=== PATIENT | female | born 1970 | race Caucasian/White ===

== ENCOUNTER 2017-09-30 19:58 | Emergency (ER) | payer MEDICAID | END 2017-09-30 23:01 | disposition home or self-care (01) | LOC: D.ER 19:58 | DX: M25.561 Pain in right knee (principal); K21.9 Gastro-esophageal reflux disease without esophagitis; J44.9 Chronic obstructive pulmonary disease, unspecified; F17.200 Nicotine dependence, unspecified, uncomplicated ==

== ENCOUNTER 2018-11-01 17:04 | Inpatient (IN) | payer MEDICAID ==
[~2018-11-01] VITALS: Ht 165.1 cm; Wt 90.7 kg
[2018-11-01] MEDS ORDERED: HYDROCODON-ACE1 EA10 PO (17:14)
[2018-11-01] MEDS ORDERED: BENADRYL25 MG PO (17:14)
[2018-11-01] MEDS ORDERED: OMEPRAZOLE40 MG PO (17:14)
[2018-11-01 17:19] VITALS: BP 152/93
[2018-11-01 18:04] VITALS: BP 128/77
[2018-11-01 18:20] LABS: BASOPHILS 0.4 % (0-2); EOSINOPHILS 4.7 % (0-7); HEMATOCRIT 43.5 % (36.0-48.0); HEMOGLOBIN 14.9 g/dL (12-16); IMMATURE GRANULOCYTES 0.3 % (0-5); LYMPHOCYTES 17.5 % (15-50); MCH 30.4 pg (26.0-34.0); MCHC 34.3 g/dL (31.0-37.0); MCV 88.8 fL (80.0-100.0); MEAN PLATELET VOLUME 9.7 fL (7.4-10.4); MONOCYTES 4.3 % (2-11); NEUTROPHILS 72.8 % (40-80); PLATELET COUNT 366 10x3/uL (130-400); RDW 14.3 % (11.5-14.5); WBC 19.5 10x3/uL (4.8-10.8)
[2018-11-01 18:31] LABS: INR 1.02 (0.85-1.17); PROTIME 12.9 SECONDS (11.6-15.0)
[2018-11-01 18:32] LABS: APTT 32.3 SECONDS (22.8-39.4)
[2018-11-01 18:48] LABS: ALBUMIN 3.9 g/dL (3.4-5.0); ALKALINE PHOSPHATASE 88 U/L (46-116); ALT (SGPT) 19 U/L (10-68); BILIRUBIN - TOTAL 0.17 mg/dL (0.2-1.3); CALC OSMOLALITY 277 mosm/kg (275-300); CARBON DIOXIDE 22.9 mmol/L (21.0-32.0); CHLORIDE - SERUM 104 mmol/L (98-107); CREATININE - SERUM 0.7 mg/dL (0.6-1.3); GLUCOSE 116 mg/dL (74-106); POTASSIUM - SERUM 3.6 mmol/L (3.5-5.1); PROTEIN - SERUM 8.4 g/dL (6.4-8.2); SODIUM 140 mmol/L (136-145); UREA NITROGEN 7 mg/dL (7-18); eGFR NON AFRICAN AMERICAN > 90 mL/min (90-120)
[2018-11-01 18:58] LABS: CKMB 2.6 U/L (0.0-3.6); CREATINE KINASE 142 UL (21-215); PRO BNP 24 pg/mL (0-125)
[2018-11-01 18:59] LABS: TROPONIN-I < 0.017 ng/mL (0.000-0.060)
[2018-11-01 19:04] VITALS: BP 156/92
[2018-11-01 19:42] LABS: APPEARANCE CLEAR (CLEAR); BILIRUBIN NEGATIVE (NEGATIVE); COLOR STRAW (YELLOW); GLUCOSE NEGATIVE (NEGATIVE); KETONE NEGATIVE (NEGATIVE); NITRITE NEGATIVE (NEGATIVE); PROTEIN NEGATIVE (NEGATIVE); UROBILINOGEN NORMAL (NORMAL)
[2018-11-01 20:00] VITALS: BP 129/83
[2018-11-01 21:00] VITALS: BP 114/84
--- NOTE | 2018-11-01 23:10 | NUR ---
RECEIVED TO FLOOR VIA WHEELCHAIR, ACCOMPANIED BY STAFF AND DAUGHTER. AMBULATED FROM CHAIR TO BED W/O DIFFICULTY. A&O X 4. PT BEGAN TO FAN SELF AND BREATHE HEAVILY. REQUESTS BREATHING TX, RT NOTIFIED. SPO2 93% ON 3L, EXPIRATORY WHEEZES HEARD BILATERALLY. REPORTS CHEST/BACK PAIN FROM COUGHING, REPORTS NO SPUTUM EXPECTORATES. STATED, "I NEED IT TO COME UP SO I CAN BREATHE." INFORMED PT TO INCREASE ORAL FLUID INTAKE TO THIN SECRETIONS TO MAKE IT EASIER. PT STATES SHE CAN'T EAT OR DRINK MUCH DUE TO SHORTNESS OF BREATH.
[2018-11-02] VITALS (7 sets, daily range): BP systolic 107–152; BP diastolic 69–89; BMI 33.3; BMI 33.2
--- NOTE | 2018-11-02 04:02 | NUR ---
I CONCUR WITH WELLNESS PROGRAM MANAGER ASSESSMENT.
[2018-11-02 11:06] LABS: BASOPHILS 0.1 % (0-2); EOSINOPHILS 0 % (0-7); HEMATOCRIT 43.6 % (36.0-48.0); HEMOGLOBIN 14.6 g/dL (12-16); IMMATURE GRANULOCYTES 0.3 % (0-5); LYMPHOCYTES 19.4 % (15-50); MCH 29.9 pg (26.0-34.0); MCHC 33.5 g/dL (31.0-37.0); MCV 89.2 fL (80.0-100.0); MONOCYTES 6.6 % (2-11); NEUTROPHILS 73.6 % (40-80); PLATELET COUNT 330 10x3/uL (130-400); RBC 4.89 10x6/uL (4.00-5.40); RDW 14.5 % (11.5-14.5)
[2018-11-02 11:08] LABS: WBC 12.9 10x3/uL (4.8-10.8)
[2018-11-02 11:28] LABS: ALBUMIN 3.9 g/dL (3.4-5.0); ALKALINE PHOSPHATASE 84 U/L (46-116); ALT (SGPT) 18 U/L (10-68); BILIRUBIN - TOTAL 0.26 mg/dL (0.2-1.3); CALC OSMOLALITY 274 mosm/kg (275-300); CALCIUM 9.4 mg/dL (8.5-10.1); CARBON DIOXIDE 26.2 mmol/L (21.0-32.0); CHLORIDE - SERUM 100 mmol/L (98-107); CREATININE - SERUM 0.8 mg/dL (0.6-1.3); GLUCOSE 127 mg/dL (74-106); POTASSIUM - SERUM 3.9 mmol/L (3.5-5.1); PRO BNP 95 pg/mL (0-125); PROTEIN - SERUM 8.3 g/dL (6.4-8.2); SODIUM 137 mmol/L (136-145); UREA NITROGEN 9 mg/dL (7-18); eGFR NON AFRICAN AMERICAN 81 mL/min (90-120)
--- NOTE | 2018-11-02 11:56 | NUR ---
I have reviewed this patient and I concur with the Shift Assessment completed by the Licensed Practical Nurse today this shift.
[2018-11-03] VITALS: BP 126/74
--- NOTE | 2018-11-03 05:30 | NUR ---
I have reviewed this patient and I concur with the Shift Assessment completed by the Licensed Practical Nurse today this shift.
[2018-11-03 05:59] LABS: BASOPHILS 0.1 % (0-2); EOSINOPHILS 0 % (0-7); HEMATOCRIT 39.7 % (36.0-48.0); IMMATURE GRANULOCYTES 0.4 % (0-5); LYMPHOCYTES 9.5 % (15-50); MCH 29.5 pg (26.0-34.0); MCHC 32.7 g/dL (31.0-37.0); MCV 90.2 fL (80.0-100.0); MEAN PLATELET VOLUME 9.8 fL (7.4-10.4); MONOCYTES 2.8 % (2-11); NEUTROPHILS 87.2 % (40-80); PLATELET COUNT 295 10x3/uL (130-400); RDW 14.6 % (11.5-14.5)
[2018-11-03 06:28] LABS: ALBUMIN 3.3 g/dL (3.4-5.0); ALKALINE PHOSPHATASE 66 U/L (46-116); BILIRUBIN - TOTAL 0.19 mg/dL (0.2-1.3); CALC OSMOLALITY 283 mosm/kg (275-300); CALCIUM 8.6 mg/dL (8.5-10.1); CARBON DIOXIDE 27.3 mmol/L (21.0-32.0); CHLORIDE - SERUM 107 mmol/L (98-107); CREATININE - SERUM 0.7 mg/dL (0.6-1.3); GLUCOSE 138 mg/dL (74-106); POTASSIUM - SERUM 4.4 mmol/L (3.5-5.1); SODIUM 142 mmol/L (136-145); UREA NITROGEN 9 mg/dL (7-18); eGFR NON AFRICAN AMERICAN > 90 mL/min (90-120)
[2018-11-03 06:29] LABS: ALT (SGPT) 28 U/L (10-68)
--- NOTE | 2018-11-03 08:04 | NUR ---
EYES CLOSED, EASILY AROUNSED BY VOICE, ORIENTED X4 EVEN UNLABORED BREATHING, ON 3LPM VIA NC WITH HUMIDIFER, IV TO RIGHT FOREARM, PATENT INFUSING NS AT 75ML/HR WITH ZOSYN, DENIES ANY CURRENT NEEDS OR DISCOMFORTS, BED LOWERED AND LOCKED, CALL LIGHT WITHIN REACH. CPOC
[2018-11-03 08:59] VITALS: BP 118/63
[2018-11-03 10:45] VITALS: Ht 165.1 cm; Wt 90.7 kg
[2018-11-03 14:48] VITALS: BP 127/70
--- NOTE | 2018-11-03 15:11 | NUR ---
I have reviewed this patient and I concur with the Shift Assessment completed by the Licensed Practical Nurse today this shift.
[2018-11-03 17:12] VITALS: BP 130/74
[2018-11-03 19:31] VITALS: BP 113/71
--- NOTE | 2018-11-03 19:35 | NUR ---
SITTING UP IN BED. ALERT AND ORIENTED X4. RESP EVEN AND NONLABORED. SOB WITH MIN EXERTION. O2 @ 3L/NC. NONPROD COUGH NOTED. BBS CTA BUT DIMINISHED IN BLL. NO EDEMA NOTED. ABD DISTENDED. BS HYPOACTIVE X4 QUADS. REPORTS LAST BM ON MON OR MON. AMBULATORY. NS @ 75 ML/HR INFUSING IN RT FOREARM WITHOUT DIFF. SR ELEVATED X2. CL IN REACH.
--- NOTE | 2018-11-03 22:00 | NUR ---
REQUESTS BENADRYL FOR INSOMNIA. MEDICATED ORDERED. CL IN REACH.
--- NOTE | 2018-11-04 00:19 | NUR ---
LYING IN BED WITH EYES CLOSED. RESP EVEN AND NONLABORED. NO DISTRESS. CL IN REACH.
[2018-11-04 03:00] VITALS: BP 119/64
--- NOTE | 2018-11-04 05:30 | NUR ---
MEDICATED WITH NORCO FOR C/O PAIN IN CHEST AND BACK. CL IN REACH.
[2018-11-04 07:07] LABS: BASOPHILS 0 % (0-2); EOSINOPHILS 0 % (0-7); HEMATOCRIT 39.9 % (36.0-48.0); HEMOGLOBIN 12.9 g/dL (12-16); IMMATURE GRANULOCYTES 0.3 % (0-5); LYMPHOCYTES 11.7 % (15-50); MCH 29.7 pg (26.0-34.0); MCHC 32.3 g/dL (31.0-37.0); MCV 91.9 fL (80.0-100.0); MEAN PLATELET VOLUME 9.9 fL (7.4-10.4); MONOCYTES 5.3 % (2-11); NEUTROPHILS 82.7 % (40-80); PLATELET COUNT 299 10x3/uL (130-400); RBC 4.34 10x6/uL (4.00-5.40); RDW 14.8 % (11.5-14.5); WBC 17.8 10x3/uL (4.8-10.8)
[2018-11-04 07:31] LABS: ALBUMIN 3.2 g/dL (3.4-5.0); ALKALINE PHOSPHATASE 64 U/L (46-116); ALT (SGPT) 34 U/L (10-68); BILIRUBIN - TOTAL 0.23 mg/dL (0.2-1.3); CALC OSMOLALITY 278 mosm/kg (275-300); CALCIUM 8.5 mg/dL (8.5-10.1); CARBON DIOXIDE 28.2 mmol/L (21.0-32.0); CHLORIDE - SERUM 105 mmol/L (98-107); CREATININE - SERUM 0.8 mg/dL (0.6-1.3); GLUCOSE 121 mg/dL (74-106); POTASSIUM - SERUM 4.2 mmol/L (3.5-5.1); SODIUM 140 mmol/L (136-145); UREA NITROGEN 9 mg/dL (7-18); eGFR NON AFRICAN AMERICAN 81 mL/min (90-120)
[2018-11-04 08:45] VITALS: BP 134/70
--- NOTE | 2018-11-04 10:53 | NUR ---
AAOX4. 3LPM VIA NC, IV TO RIGHT FOREARM, INFUSING NS AT 75ML/HR, AMBULATORY, DENIES ANY CURRENT NEEDS OR DISCOMFORTS, BED LOWERED AND LOCKED, CALL LIGHT WITHIN REACH. CPOC
[2018-11-04 12:00] VITALS: BP 104/62
--- NOTE | 2018-11-04 14:51 | NUR ---
IV INFILITRATED TO RIGHT FOREARM, CATHETER REMOVED, WITH CATHETER TIP INTACT, ICE APPLIED. DENIES ANY OTHER NEEDS OR DISCOMFORTS, BED LOWERED AND LOCKED, CALL LIGHT WITHIN REACH. CPOC
[2018-11-04 16:30] VITALS: BP 129/76
--- NOTE | 2018-11-04 19:30 | NUR ---
SITTING UP IN BED. VISITOR AT BEDSIDE. ALERT AND ORIENTED X4. TALKATIVE WITH STAFF. RESP IRREG. NONLABORED. SOB WITH EXERTION. O2 @ 3L/NC. PROD COUGH WITH CLEAR SPUTUM REPORTED. ABD DISTENDED, FIRM. BS ACTIVE X4 QUADS. REPORTS PAIN IN CHEST AND BACK 2 ON PAIN SCALE. BRUISES NOTED TO BUE. AMBULATORY. NS @ 75 ML/HR INFUSING IN RT WRIST WITHOUT DIFF. NO DISTRESS. SR ELEVATED X2. CL IN REACH.
[2018-11-04 20:31] VITALS: BP 133/79
--- NOTE | 2018-11-04 21:29 | NUR ---
REQUESTS BENADRYL FOR INSOMNIA. MEDICATED ORDERED. CL IN REACH.
--- NOTE | 2018-11-05 00:40 | NUR ---
MEDICATED WITH NORCO FOR C/O PAIN IN CHEST AND BACK. CL IN REACH.
[2018-11-05 06:21] LABS: BASOPHILS 0.1 % (0-2); EOSINOPHILS 0.1 % (0-7); HEMATOCRIT 38.8 % (36.0-48.0); HEMOGLOBIN 12.6 g/dL (12-16); IMMATURE GRANULOCYTES 0.4 % (0-5); LYMPHOCYTES 17.4 % (15-50); MCH 29.4 pg (26.0-34.0); MCHC 32.5 g/dL (31.0-37.0); MCV 90.4 fL (80.0-100.0); MEAN PLATELET VOLUME 9.9 fL (7.4-10.4); MONOCYTES 5.4 % (2-11); NEUTROPHILS 76.6 % (40-80); PLATELET COUNT 283 10x3/uL (130-400); RBC 4.29 10x6/uL (4.00-5.40); RDW 14.2 % (11.5-14.5)
[2018-11-05 06:24] LABS: WBC 11.3 10x3/uL (4.8-10.8)
[2018-11-05 06:43] LABS: ALBUMIN 3.1 g/dL (3.4-5.0); ALKALINE PHOSPHATASE 66 U/L (46-116); ALT (SGPT) 39 U/L (10-68); BILIRUBIN - TOTAL 0.16 mg/dL (0.2-1.3); CALC OSMOLALITY 282 mosm/kg (275-300); CALCIUM 8.3 mg/dL (8.5-10.1); CARBON DIOXIDE 31.3 mmol/L (21.0-32.0); CHLORIDE - SERUM 106 mmol/L (98-107); CREATININE - SERUM 0.7 mg/dL (0.6-1.3); GLUCOSE 130 mg/dL (74-106); POTASSIUM - SERUM 4.3 mmol/L (3.5-5.1); PROTEIN - SERUM 6.2 g/dL (6.4-8.2); SODIUM 142 mmol/L (136-145); UREA NITROGEN 8 mg/dL (7-18); eGFR NON AFRICAN AMERICAN > 90 mL/min (90-120)
--- NOTE | 2018-11-05 07:20 | NUR ---
PT RESTING IN BED, EYES CLOSED. RESPIRATIONS EVEN AND UNLABORED. PT ALERT AND ORIENTED. UP AD JONY. BRUISING BILATERAL UPPER EXTREMETIES. ABDOMEN DISTENDED, BOWEL SOUNDS +, HAD BM LAST NIGHT. ON ELECTROLYTE PROTOCOL. ON 3L O2, NC. NO C/O PAIN. NO S/S OF DISTRESS NOTED. IV TO RIGHT WRIST, NS INFUSING @ 75. SITE PATENT WITHOUT REDNESS OR SWELLING. PT DENIES ANYTHING FURTHER AT THIS TIME. CALL LIGHT IN REACH. WILL CONTINUE TO MONITOR.
[2018-11-05 09:13] VITALS: BP 140/80
--- NOTE | 2018-11-05 09:23 | NUR ---
I have reviewed this patient and I concur with the Shift Assessment completed by the Licensed Practical Nurse today this shift.
[2018-11-05 13:56] VITALS: BP 122/82
[2018-11-05 17:04] VITALS: BP 140/56
--- NOTE | 2018-11-05 18:59 | NUR ---
PT SITTING UP IN BED. NO C/O PAIN. NO S/S OF ACUTE DISTRESS NOTED. CALL LIGHT IN REACH. DENIES ANYTHING FURTHER.
--- NOTE | 2018-11-05 19:42 | NUR ---
REC'D IN BED AWAKE AND ALERT ON PHONE. RESP EVEN AND UNLABORED WITH NO DISTRESS NOTED. CAN VOICE NEEDS AND WANTS WITH NO C/O NOTED OR VOICED. ASSESSMENT COMPLETED. C/L IN REACH AT BEDSIDE.
[2018-11-05 20:00] VITALS: BP 138/78
[2018-11-06] VITALS: BP 121/77
[2018-11-06 04:00] VITALS: BP 139/95
--- NOTE | 2018-11-06 04:12 | NUR ---
I have reviewed this patient and I concur with the Shift Assessment completed by the Licensed Practical Nurse today this shift.
--- NOTE | 2018-11-06 05:31 | NUR ---
C/O BACK PAIN RATING 4/10 ON PAIN SCALE WAS MEDICATED WITH NORCO.
[2018-11-06 06:32] LABS: HEMATOCRIT 39.3 % (36.0-48.0); LYMPHOCYTES 18.2 % (15-50); MCHC 33.1 g/dL (31.0-37.0); MCV 90.8 fL (80.0-100.0); MEAN PLATELET VOLUME 9.7 fL (7.4-10.4); NEUTROPHILS 76.7 % (40-80); PLATELET COUNT 292 10x3/uL (130-400); RBC 4.33 10x6/uL (4.00-5.40); RDW 13.9 % (11.5-14.5); WBC 12.9 10x3/uL (4.8-10.8)
[2018-11-06 07:02] LABS: ALKALINE PHOSPHATASE 66 U/L (46-116); ALT (SGPT) 37 U/L (10-68); BILIRUBIN - TOTAL 0.13 mg/dL (0.2-1.3); CALC OSMOLALITY 283 mosm/kg (275-300); CALCIUM 8.4 mg/dL (8.5-10.1); CARBON DIOXIDE 28.9 mmol/L (21.0-32.0); CHLORIDE - SERUM 106 mmol/L (98-107); CREATININE - SERUM 0.6 mg/dL (0.6-1.3); GLUCOSE 124 mg/dL (74-106); PROTEIN - SERUM 6.3 g/dL (6.4-8.2); SODIUM 143 mmol/L (136-145); UREA NITROGEN 8 mg/dL (7-18); VANCOMYCIN - TROUGH 20.4 ug/mL (10.0-20.0); eGFR NON AFRICAN AMERICAN > 90 mL/min (90-120)
[2018-11-06 07:05] LABS: POTASSIUM - SERUM 3.6 mmol/L (3.5-5.1)
--- NOTE | 2018-11-06 07:25 | NUR ---
PT RESTING IN BED, ALERT AND ORIENTED. NO C/O PAIN. NO S/S OF ACUTE DISTRESS NOTED. PT UP AD JONY. IV TO RIGHT WRIST, NS INFUSING @ 75ML/HR. SITE PATENT WITHOUT REDNESS OR SWELLING. PT ON ELECTROLYTE PROTOCOL. LUNG SOUNDS CLEAR, EXCEPT LLL DIMINISHED. PT DENIES ANYTHING FURTHER AT THIS TIME. CALL LIGHT IN REACH. WILL CONTINUE TO MONITOR.
[2018-11-06 08:51] VITALS: BP 141/89
[2018-11-06 13:21] VITALS: BP 123/71
--- NOTE | 2018-11-06 14:23 | NUR ---
NUTRITION F/U CHART REVIEWED. PT TOLERATING AHA DIET WITH GOOD INTAKE RECENT MEALS. WILL CONTINUE TO PROVIDE DIET, MONITOR PO INTAKE. RD FOLLOWING
--- NOTE | 2018-11-06 15:58 | NUR ---
I have reviewed this patient and I concur with the Shift Assessment completed by the Licensed Practical Nurse today this shift.
[2018-11-06 17:52] VITALS: BP 139/81
--- NOTE | 2018-11-06 18:40 | NUR ---
PT IV SITE LEAKING, DISCONTINUED IV TO RIGHT WRIST CATHETER TIP INTACT. RESITED TO RIGHT FOREARM, X1 TRY 22 GAUGE. IV FLUIDS RESUMED, VANC INFUSING. CALL LIGHT IN REACH. NO C/O PAIN. NO S/S OF ACUTE DISTRESS NOTED. PT DENIES ANYTHING FURTHER.
[2018-11-06 20:00] VITALS: BP 143/668
[2018-11-07 04:00] VITALS: BP 133/81
--- NOTE | 2018-11-07 04:49 | NUR ---
REC'D. CHG.SHIFT IN BED TALKING ON PHONE. DENIES ANY DISCOMFORT OR COMPLAINTS AT PRESENT TIME EXCITED STATES MAY GO HOME IN AM. WILL CONTINUE TO MONITORE FOR ANY CHGES. AND FOLLOW CURRENT PLAN OF CARE.
[2018-11-07 07:00] LABS: BASOPHILS 0.1 % (0-2); EOSINOPHILS 0.1 % (0-7); HEMATOCRIT 39.6 % (36.0-48.0); HEMOGLOBIN 12.9 g/dL (12-16); IMMATURE GRANULOCYTES 0.8 % (0-5); LYMPHOCYTES 17.5 % (15-50); MCH 29.6 pg (26.0-34.0); MCHC 32.6 g/dL (31.0-37.0); MCV 90.8 fL (80.0-100.0); MONOCYTES 6.6 % (2-11); NEUTROPHILS 74.9 % (40-80); PLATELET COUNT 283 10x3/uL (130-400); RBC 4.36 10x6/uL (4.00-5.40); RDW 14.1 % (11.5-14.5)
[2018-11-07 07:23] LABS: ALKALINE PHOSPHATASE 71 U/L (46-116); ALT (SGPT) 36 U/L (10-68); BILIRUBIN - TOTAL 0.14 mg/dL (0.2-1.3); CALCIUM 8.2 mg/dL (8.5-10.1); CARBON DIOXIDE 31.2 mmol/L (21.0-32.0); CHLORIDE - SERUM 101 mmol/L (98-107); CREATININE - SERUM 0.7 mg/dL (0.6-1.3); GLUCOSE 144 mg/dL (74-106); POTASSIUM - SERUM 3.6 mmol/L (3.5-5.1); PROTEIN - SERUM 6.2 g/dL (6.4-8.2); SODIUM 139 mmol/L (136-145); eGFR NON AFRICAN AMERICAN > 90 mL/min (90-120)
[2018-11-07 07:26] LABS: WBC 16.3 10x3/uL (4.8-10.8)
[2018-11-07 07:39] LABS: CALC OSMOLALITY 279 mosm/kg (275-300); UREA NITROGEN 11 mg/dL (7-18)
[2018-11-07 09:14] VITALS: BP 117/86
[2018-11-07 12:41] VITALS: BP 121/78
[2018-11-07 13:12] LABS: PROCALCITONIN <0.02 ng/mL (0.00-0.08)
--- NOTE | 2018-11-07 14:03 | NUR ---
PT RESTING IN BED. NO SIGNS OF DISTRESS. IV TO RIGHT HAND PATENT NO REDNESS OR TENDERNESS. ON 3L NC. DENIES ANY OTHER NEED AT THIS TIME. CALL LIGHT IN REACH. BED LOW POSITION. FAMILY AT BEDSIDE.
--- NOTE | 2018-11-07 14:23 | MORECARE ---
CASE MANAGEMENT DISCHARGE SUMMARY PATIENT: LINDA BIRCH UNIT: [id number] ADM DATE: 11/01/18 AGE: 48 : 68 SEX: F ROOM/BED: D[facility] AUTHOR: LIZZY PLATA PHYSICIAN: REFERRING PHYSICIAN: ESTEE LOPEZ DO DATE OF SERVICE: 11/07/18 Discharge Plan Patient Name: LINDA BIRCH Facility: [facility]:[place] : 1970 Planned Disposition: Home Anticipated Discharge Date: Discharge Date: Expected LOS: Initial Reviewer: [email or web address] Initial Review Date: 11/07/2018 Generated: 11/07/18 3:22 pm Patient Name: LINDA BIRCH Page 68994 at 1423 All edits/amendments must be made on the electronic document DICTATION DATE: 11/07/181421 REGIONAL PROPERTY MANAGER: JERONIMO 11/07/181421 RPT#: [id number] DC DATE: STATUS: ADM IN [facility] [address] [place] [address] END OF REPORT
--- NOTE | 2018-11-07 14:31 | MORECARE ---
CASE MANAGEMENT DISCHARGE SUMMARY PATIENT: LINDA BIRCH UNIT: [id number] ADM DATE: 11/01/18 AGE: 48 : 68 SEX: F ROOM/BED: D.2237 AUTHOR: BONIDOC PHYSICIAN: REFERRING PHYSICIAN: ESTEE LOPEZ DO DATE OF SERVICE: 11/07/18 Discharge Plan Patient Name: LINDA BIRCH Facility: [facility]:[place] : 1970 Planned Disposition: Home Anticipated Discharge Date: Discharge Date: Expected LOS: Initial Reviewer: [email or web address] Initial Review Date: 11/07/2018 Generated: 11/07/18 3:31 pm Comments DCP- Discharge Planning Updated by [email or web address]: Matilda Monet on 11/07/18 1:[address] Patient Name: LINDA BIRCH Admission Status: ER Accout number: [id number] Admission Date: 11-01-2018 : 1970 Admission Diagnosis:PNEUMONIA, UNSPECIFIED ORGANISM Attending: ESTEE LOPEZ Current LOS: 6 Anticipated DC Date: Planned Disposition: Home Primary Insurance: [place] PRIVATE OPTIONS KELL[place] Discharge Planning Comments: CM MET WITH PATIENT ABOUT DC PLANNING/NEEDS. PATIENT STATES PLANS TO DC TO HOME WITH DAUGHTER, DENIES NEEDS. CM WILL FOLLOW AND ASSIST NEEDED WITH DC PLANNING/NEEDS. Lead Bi Developer: Matilda Monet DCPIA - Discharge Planning Initial Assessment Updated by [email or web address]: Matilda Monet on 11/07/18 2:24 pm * Is the patient Alert and Oriented? Yes * PCP GARRICK * [facility]acy [facility] * Preadmission Environment Home with Family * ADLs Independent * Equipment Nebulizer * List name and contact numbers for known caregivers / representatives who currently or will assist patient after discharge: CRISTIANO, DAUGHTER, * Verbal permission to speak to the caregivers and representatives has been obtained from the patient. Yes * Community resources currently utilized None * Additional services required to return to the preadmission environment? No * Can the patient safely return to the preadmission environment? Yes * Has this patient been hospitalized within the prior 30 days at any hospital? No Last DP export: 11/07/18 1:22 p Patient Name: LINDA BIRCH Page 28905 at 1431 All edits/amendments must be made on the electronic document DICTATION DATE: 11/07/181429 BENDING MACHINE OPERATOR: JERONIMO 11/07/181429 RPT#: [id number] DC DATE: STATUS: ADM IN [facility] [address] [place] [address] END OF REPORT
--- NOTE | 2018-11-07 16:53 | NUR ---
I have reviewed this patient and I concur with the Shift Assessment completed by the Licensed Practical Nurse today this shift.
[2018-11-07 17:37] VITALS: BP 124/74
[2018-11-07 19:25] LABS: APPEARANCE CLEAR (CLEAR); BILIRUBIN NEGATIVE (NEGATIVE); COLOR YELLOW (YELLOW); GLUCOSE NEGATIVE (NEGATIVE); KETONE NEGATIVE (NEGATIVE); NITRITE NEGATIVE (NEGATIVE); PROTEIN TRACE mg/dL (NEGATIVE); SPECIFIC GRAVITY 1.015 (1.005-1.020); UROBILINOGEN NORMAL (NORMAL)
[2018-11-07 20:00] VITALS: BP 141/86
--- NOTE | 2018-11-08 00:03 | NUR ---
REC'D.CHGE. OF SHIFT SITTING UP IN BED. SAD OF NOT BEING DISCHARGED HOME TODAY 02 2L NS WITH NO SIGNS OR SYMPTOMS OF ANY RESP. DIFFICULTY. WILL CONTINUE TO MONITOR FOR ANY CHGES IN RESP. STATUS AND FOLLOW CURRENT PLAN OF CARE
[2018-11-08 04:00] VITALS: BP 122/78
--- NOTE | 2018-11-08 04:35 | NUR ---
I have reviewed this patient and I concur with the Shift Assessment completed by the Licensed Practical Nurse today this shift.
[2018-11-08 06:10] LABS: BASOPHILS 0.1 % (0-2); EOSINOPHILS 0 % (0-7); HEMATOCRIT 38.2 % (36.0-48.0); HEMOGLOBIN 12.6 g/dL (12-16); LYMPHOCYTES 16.2 % (15-50); MCH 29.6 pg (26.0-34.0); MCV 89.7 fL (80.0-100.0); MONOCYTES 6.3 % (2-11); NEUTROPHILS 76.4 % (40-80); PLATELET COUNT 273 10x3/uL (130-400); RBC 4.26 10x6/uL (4.00-5.40); RDW 14.2 % (11.5-14.5); WBC 12.6 10x3/uL (4.8-10.8)
[2018-11-08 06:18] LABS: CALC OSMOLALITY 279 mosm/kg (275-300); CALCIUM 8.1 mg/dL (8.5-10.1); CARBON DIOXIDE 30.5 mmol/L (21.0-32.0); CHLORIDE - SERUM 105 mmol/L (98-107); CREATININE - SERUM 0.7 mg/dL (0.6-1.3); GLUCOSE 128 mg/dL (74-106); SODIUM 140 mmol/L (136-145); UREA NITROGEN 10 mg/dL (7-18); VANCOMYCIN - RANDOM 3.5 ug/mL (10.0-20.0); eGFR NON AFRICAN AMERICAN > 90 mL/min (90-120)
[2018-11-08 06:23] LABS: POTASSIUM - SERUM 4.2 mmol/L (3.5-5.1)
--- NOTE | 2018-11-08 07:20 | NUR ---
PT SITTING UP IN BED, EYES OPEN. NO C/O PAIN. NO S/S OF ACUTE DISTRESS NOTED. ALERT AND ORIENTED. UP AD JONY. IV TO RIGHT FOREARM, NS INFUSING @ 30ML/HR. SITE PATENT WITHOUT REDNESS OR SWELLING. PT DENIES ANYTHING FURTHER AT THIS TIME. CALL LIGHT IN REACH. WILL CONTINUE TO MONITOR.
--- NOTE | 2018-11-08 08:25 | NUR ---
PT C/O PAIN TO BACK. 10/24, GAVE NORCO 10MG FOR PAIN.
[2018-11-08 09:25] VITALS: BP 133/67
[2018-11-08 13:43] VITALS: BP 126/86
[2018-11-08] MEDS ORDERED: LEVAQUIN750 MG PO (16:11)
[2018-11-08] MEDS ORDERED: PREDNISONE10 MG PO (16:12)
[2018-11-08] MEDS ORDERED: IPRAT-ALBUT 0.5-3 ML INH (16:13)
--- NOTE | 2018-11-08 16:39 | MORECARE ---
CASE MANAGEMENT DISCHARGE SUMMARY PATIENT: LINDA BIRCH UNIT: [id number] ADM DATE: 11/01/18 AGE: 48 : 68 SEX: F ROOM/BED: D.2237 AUTHOR: LIZZY PLATA PHYSICIAN: REFERRING PHYSICIAN: ESTEE LOPEZ DO DATE OF SERVICE: 11/08/18 Discharge Plan Patient Name: LINDA BIRCH Facility: [facility]:[place] : 1970 Planned Disposition: Home Anticipated Discharge Date: Discharge Date: Expected LOS: Initial Reviewer: [email or web address] Initial Review Date: 11/07/2018 Generated: 11/08/18 5:38 pm Comments DCP- Discharge Planning Updated by [email or web address]: Matilda Monet on 11/07/18 1:[address] Patient Name: LINDA BIRCH Admission Status: ER Accout number: [id number] Admission Date: 11-01-2018 : 1970 Admission Diagnosis:PNEUMONIA, UNSPECIFIED ORGANISM Attending: ESTEE LOPEZ Current LOS: 6 Anticipated DC Date: Planned Disposition: Home Primary Insurance: [place] PRIVATE OPTIONS KELL[place] Discharge Planning Comments: CM MET WITH PATIENT ABOUT DC PLANNING/NEEDS. PATIENT STATES PLANS TO DC TO HOME WITH DAUGHTER, DENIES NEEDS. CM WILL FOLLOW AND ASSIST NEEDED WITH DC PLANNING/NEEDS. Loading Shovel Oiler: Matilda Monet DCPIA - Discharge Planning Initial Assessment Updated by [email or web address]: Matilda Monet on 11/07/18 2:24 pm * Is the patient Alert and Oriented? Yes * PCP GARRICK * [facility]acy [facility] * Preadmission Environment Home with Family * ADLs Independent * Equipment Nebulizer * List name and contact numbers for known caregivers / representatives who currently or will assist patient after discharge: CRISTIANO, DAUGHTER, * Verbal permission to speak to the caregivers and representatives has been obtained from the patient. Yes * Community resources currently utilized None * Additional services required to return to the preadmission environment? No * Can the patient safely return to the preadmission environment? Yes * Has this patient been hospitalized within the prior 30 days at any hospital? No External [facility]iders [facility] Contact Date: Service Request Date: Service Type: Resolution: Reviewer: Comments: Last DP export: 11/07/18 1:31 p Patient Name: LINDA BIRCH Page [phone] at 1639 All edits/amendments must be made on the electronic document DICTATION DATE: 11/08/181637 SUBWAREHOUSE SUPERVISOR: JERONIMO 11/08/181637 RPT#: [id number] [place] DATE: STATUS: ADM IN [facility] [address] [place] [address] END OF REPORT
--- NOTE | 2018-11-08 16:49 | MORECARE ---
CASE MANAGEMENT DISCHARGE SUMMARY PATIENT: LINDA BIRCH UNIT: [id number] ADM DATE: 11/01/18 AGE: 48 : 68 SEX: F ROOM/BED: D.2237 AUTHOR: BONI,DOC PHYSICIAN: REFERRING PHYSICIAN: ESTEE LOPEZ DO DATE OF SERVICE: 11/08/18 Discharge Plan Patient Name: LINDA BIRCH Facility: [facility]:[place] : 1970 Planned Disposition: Home Anticipated Discharge Date: Discharge Date: Expected LOS: Initial Reviewer: [email or web address] Initial Review Date: 11/07/2018 Generated: 11/08/18 5:49 pm Comments DCP- Discharge Planning Updated by [email or web address]: Elise Ward on 11/08/18 3:[address] PATIENT NEEDED A NEBULIZER PER DR ELIZABETH'S ORDERS, SHE WAS 97% ON ROOM AIR ON THE WALK TEST. [facility] WILL DELIVER THE NEBULIZER TO THE HOSPITAL DCP- Discharge Planning Updated by [email or web address]: Matilda Monet on 11/07/18 1:[address] Patient Name: LINDA BIRCH Admission Status: ER Accout number: [id number] Admission Date: 11-01-2018 : 1970 Admission Diagnosis:PNEUMONIA, UNSPECIFIED ORGANISM Attending: ESTEE LOPEZ Current LOS: 6 Anticipated DC Date: Planned Disposition: Home Primary Insurance: [place] PRIVATE OPTIONS KELL[place] Discharge Planning Comments: CM MET WITH PATIENT ABOUT DC PLANNING/NEEDS. PATIENT STATES PLANS TO DC TO HOME WITH DAUGHTER, DENIES NEEDS. CM WILL FOLLOW AND ASSIST NEEDED WITH DC PLANNING/NEEDS. Lawn Sprinkler Servicer: Matilda Monet DCPIA - Discharge Planning Initial Assessment Updated by [email or web address]: Matilda Monet on 11/07/18 2:24 pm * Is the patient Alert and Oriented? Yes * PCP GARRICK * [facility]acy [facility] * Preadmission Environment Home with Family * ADLs Independent * Equipment Nebulizer * List name and contact numbers for known caregivers / representatives who currently or will assist patient after discharge: RAVINDER QUINONEZ, * Verbal permission to speak to the caregivers and representatives has been obtained from the patient. Yes * Community resources currently utilized None * Additional services required to return to the preadmission environment? No * Can the patient safely return to the preadmission environment? Yes * Has this patient been hospitalized within the prior 30 days at any hospital? No Coverage Notice Reviewer: [email or web address] Tano Ward Notice Issued Date-Time: 11/08/2018 16:40 Notice Type: Patient Choice Letter Notice Delivered To: Patient Relationship to Patient: Cesspool Cleaner Name: Delivery Method: HAND - Hand Delivered Terrie Days: Prior Verbal Notification: Recipient Understood Notice: Yes Recipient Signature: Yes Med Rec Note Co-signed by Attending: Coverage Notice Comment: Last DP export: 11/08/18 3:38 p Patient Name: LINDA BIRCH Page 40596 at 1649 All edits/amendments must be made on the electronic document DICTATION DATE: 11/08/181647 INVESTMENT ASSOCIATE: JERONIMO 11/08/181647 RPT#: [id number] DC DATE: STATUS: ADM IN [facility] [address] [place] [address] END OF REPORT
[2018-11-08 17:29] VITALS: BP 119/74
--- NOTE | 2018-11-08 18:37 | NUR ---
PT SITTING UP IN BED, AWAITING DAUGHTER TO PICK HER UP. PT DISCHARGE PAPERS SIGNED, WENT OVER DISCHARGE INSTRUCTIONS WITH PT. PT ACKNOWLEDGED INSTRUCTIONS. NO C/O PAIN. NO S/S OF ACUTE DISTRESS NOTED. PT DENIES ANYTHING FURTHER AT THIS TIME. CALL LIGHT IN REACH. WILL CONTINUE TO MONITOR.
--- NOTE | 2018-11-08 18:45 | NUR ---
I have reviewed this patient and I concur with the Shift Assessment completed by the Licensed Practical Nurse today this shift.
--- NOTE | 2018-11-08 19:33 | NUR ---
SL TO RIGHT HAND REMOVED. DISCHARGED TO HOME VIA FAMILY CAR WITH DAUGHTER. PERSONAL BELONGINGS SENT WITH PATIENT.
== END 2018-11-08 19:34 | disposition home or self-care (01) | DRG 193 ==
LOC: D.ER 17:04 → D.EDHOLD 21:32 → D.MS 21:32
PROVIDERS: Emergency Medicine; Family Medicine; Internal Medicine Nephrology; Internal Medicine Pulmonary Disease; ADMIT Family Medicine; ATTEND Family Medicine
DX: J18.9 Pneumonia, unspecified organism (principal); J96.01 Acute respiratory failure with hypoxia; J44.0 Chronic obstructive pulmonary disease with (acute) lower respiratory infection; J44.1 Chronic obstructive pulmonary disease with (acute) exacerbation; F17.213 Nicotine dependence, cigarettes, with withdrawal; E86.0 Dehydration

== ENCOUNTER → 2019-01-08 07:46 | Outpatient (CLI) | payer MEDICAID ==
[2018-11-03 10:45] VITALS: BMI 33.2
[~2019-01-08 07:46] MED LIST: BENADRYL25 MG PO; HYDROCODON-ACE1 EA10 PO; IPRAT-ALBUT 0.5-3 ML INH; LEVAQUIN750 MG PO; OMEPRAZOLE40 MG PO; PREDNISONE10 MG PO
== END | disposition home or self-care (01) ==
LOC: D.RT 07:46
PROVIDERS: ATTEND Internal Medicine Pulmonary Disease
DX: J44.9 Chronic obstructive pulmonary disease, unspecified (principal)

== ENCOUNTER 2019-12-13 12:19 | Inpatient (IN) | payer MEDICAID ==
[~2019-12-13] VITALS: Ht 152.4 cm; Wt 100.0 kg
[2019-12-13] MEDS ORDERED: ALBUTEROL2.5 MG/3 M INH (12:31)
[2019-12-13] MEDS ORDERED: CLEOCIN HCL150 MG PO (12:32)
[2019-12-13 13:06] LABS: BASOPHILS 1.2 % (0-2); EOSINOPHILS 15.8 % (0-7); HEMATOCRIT 42.7 % (36.0-48.0); HEMOGLOBIN 13.4 g/dL (12-16); IMMATURE GRANULOCYTES 0.3 % (0-5); LYMPHOCYTES 26.5 % (15-50); MCH 28.6 pg (26.0-34.0); MCHC 31.4 g/dL (31.0-37.0); MCV 91.2 fL (80.0-100.0); MEAN PLATELET VOLUME 10.1 fL (7.4-10.4); MONOCYTES 5.7 % (2-11); NEUTROPHILS 50.5 % (40-80); RBC 4.68 10x6/uL (4.00-5.40); RDW 14.5 % (11.5-14.5); WBC 11.6 10x3/uL (4.8-10.8)
[2019-12-13 13:20] LABS: APTT 29.7 SECONDS (22.8-39.4); INR 0.92 (0.85-1.17); PROTIME 12.3 SECONDS (11.6-15.0)
[2019-12-13 13:22] LABS: PLATELET COUNT 422 10x3/uL (130-400)
[2019-12-13 13:23] LABS: CALC OSMOLALITY 278 mosm/kg (275-300); CALCIUM 9.4 mg/dL (8.5-10.1); CARBON DIOXIDE 25.4 mmol/L (21.0-32.0); CHLORIDE - SERUM 105 mmol/L (98-107); CREATININE - SERUM 0.9 mg/dL (0.6-1.3); GLUCOSE 107 mg/dL (74-106); POTASSIUM - SERUM 4.7 mmol/L (3.5-5.1); SODIUM 141 mmol/L (136-145); UREA NITROGEN 8 mg/dL (7-18); eGFR NON AFRICAN AMERICAN 70 mL/min (90-120)
[2019-12-13 13:40] LABS: ALBUMIN 3.9 g/dL (3.4-5.0); ALKALINE PHOSPHATASE 101 U/L (30-120); ALT (SGPT) 36 U/L (10-68); BILIRUBIN - TOTAL 0.25 mg/dL (0.2-1.3); CKMB 7.2 U/L (0.0-3.6); CREATINE KINASE 371 UL (21-215); PRO BNP 102 pg/mL (0-125); PROTEIN - SERUM 7.6 g/dL (6.4-8.2); TROPONIN-I < 0.017 ng/mL (0.000-0.060)
--- NOTE | 2019-12-13 13:54 | NUR ---
PT HAD ALL 3 RESP. TX. MARSHAL. WELL.
--- NOTE | 2019-12-13 14:29 | NUR ---
SITTING UP IN BED, STATES COUGH MAKES HER HEAD HURT.
[2019-12-13 16:42] LABS: CKMB 7.3 U/L (0.0-3.6); CREATINE KINASE 367 UL (21-215)
[2019-12-13 16:46] LABS: TROPONIN-I < 0.017 ng/mL (0.000-0.060)
--- NOTE | 2019-12-13 16:52 | NUR ---
ROCEPHIN INFUSING ON DEPARTURE TO FLOOR.
[2019-12-13 17:31] VITALS: BP 127/82
--- NOTE | 2019-12-13 17:32 | NUR ---
RECEIVED PT FROM ER. PT IS AAO AND UP AD JONY. RR EVEN AND UNLABORED ON 2.5L 02. NO S/S OF DISTRESS NOTED. QUICKSTART, HISTORY, AND MED REQ COMPLETE. PT DENIES ANY NEEDS. WILL CTM.
--- NOTE | 2019-12-13 20:29 | NUR ---
RECIEVED BEDSIDE SHIFT REPORT. ALERT AND ORIENTED X4. UP AD JONY. WHEEZES IN BILATERAL LUNG ROUSSEAU. O2@ 2.5 LITERS PER NC. IV TO LT HAND SL. DENIES ANY NEEDS AT THIS TIME.
[2019-12-13 20:30] VITALS: BP 117/76
[2019-12-13 22:36] LABS: CKMB 10.2 U/L (0.0-3.6); CREATINE KINASE 395 UL (21-215); TROPONIN-I < 0.017 ng/mL (0.000-0.060)
[2019-12-14 00:30] VITALS: BP 133/74
[2019-12-14 04:30] VITALS: BP 120/60
[2019-12-14 04:45] LABS: BASOPHILS 0.1 % (0-2); EOSINOPHILS 0.1 % (0-7); HEMATOCRIT 40.2 % (36.0-48.0); HEMOGLOBIN 12.6 g/dL (12-16); IMMATURE GRANULOCYTES 0.3 % (0-5); LYMPHOCYTES 7.8 % (15-50); MCH 28.7 pg (26.0-34.0); MCHC 31.3 g/dL (31.0-37.0); MCV 91.6 fL (80.0-100.0); MEAN PLATELET VOLUME 9.6 fL (7.4-10.4); MONOCYTES 1.6 % (2-11); NEUTROPHILS 90.1 % (40-80); PLATELET COUNT 405 10x3/uL (130-400); RBC 4.39 10x6/uL (4.00-5.40); RDW 14.4 % (11.5-14.5)
[2019-12-14 04:46] LABS: WBC 17.5 10x3/uL (4.8-10.8)
[2019-12-14 05:48] LABS: CALCIUM 9.2 mg/dL (8.5-10.1); CARBON DIOXIDE 25.3 mmol/L (21.0-32.0); CHLORIDE - SERUM 102 mmol/L (98-107); CKMB 15.2 U/L (0.0-3.6); CREATINE KINASE 407 UL (21-215); POTASSIUM - SERUM 4.5 mmol/L (3.5-5.1); SODIUM 136 mmol/L (136-145); eGFR NON AFRICAN AMERICAN 62 mL/min (90-120)
[2019-12-14 05:52] LABS: CALC OSMOLALITY 276 mosm/kg (275-300); GLUCOSE 167 mg/dL (74-106); TROPONIN-I < 0.017 ng/mL (0.000-0.060); UREA NITROGEN 14 mg/dL (7-18)
--- NOTE | 2019-12-14 07:00 | NUR ---
RECEIVED REPORT. ASSUMED CARE OF PATIENT. PATIENT RESTING IN BED WITH EYES CLOSED. PATIENT EASILY AROUSED, COMPLAINS OF BACK PAIN THIS AM AND REQUESTING PAIN MEDICATION. CALL LIGHT WITHIN REACH. BEDSIDE SHIFT REPORT COMPLETE, WHITE BOARD UPDATED. NO DISTRESS.
--- NOTE | 2019-12-14 07:33 | NUR ---
MEDICATED FOR BACK PAIN AT THIS TIME. NO DISTRESS.
--- NOTE | 2019-12-14 09:51 | NUR ---
22 GAUGE IV PLACED TO LEFT FOREARM X 1 STICK. GOOD BLOOD RETURN, EASY FLUSH. TAPED,DATED, AND SECURED. PATIENT TOLERATED IV PLACEMENT WELL. 20 GAUGE IV REMOVED FROM LEFT HAND. IV WITH DIFFICULTY FLUSHING AND PATIENT COMPLAINED OF PAIN. CATHETER TIP INTACT. NO DISTRESS. TOLERATED IV REMOVAL WELL.
[2019-12-14 10:14] VITALS: BP 136/88
[2019-12-14 12:05] LABS: BILIRUBIN NEGATIVE (NEGATIVE); GLUCOSE NEGATIVE (NEGATIVE); KETONE NEGATIVE (NEGATIVE); NITRITE NEGATIVE (NEGATIVE); UROBILINOGEN NORMAL (NORMAL)
[2019-12-14 12:18] LABS: UDS - AMPHET NEGATIVE QUAL (NEGATIVE); UDS - BARB NEGATIVE QUAL (NEGATIVE); UDS - BENZO NEGATIVE QUAL (NEGATIVE); UDS - COCAINE NEGATIVE QUAL (NEGATIVE); UDS - OPIATE POSITIVE QUAL (NEGATIVE); UDS - PCP NEGATIVE QUAL (NEGATIVE); UDS - THC NEGATIVE QUAL (NEGATIVE)
[2019-12-14 14:22] VITALS: BP 141/78
--- NOTE | 2019-12-14 14:56 | NUR ---
RESTING IN BED WITH EYES CLOSED. NO DISTRESS. IV FLUIDS INFUSING ORDERED.
--- NOTE | 2019-12-14 16:51 | NUR ---
RESTING IN BED CONSUMING PM MEAL. NO DISTRESS. CALL LIGHT WITHIN REACH.
--- NOTE | 2019-12-14 17:46 | NUR ---
SHOWER COMPLETED, COMPLETE LINEN CHANGE, TELEMETRY REAPPLIED. PATIENT SITTING IN BED WITH DAUGHTER AT BEDSIDE. NO DISTRESS.
[2019-12-14 18:34] LABS: CKMB 13.6 U/L (0.0-3.6); CREATINE KINASE 309 UL (21-215)
--- NOTE | 2019-12-14 19:21 | NUR ---
RECEIVED UP IN BED WITH EYES OPEN AND TV ON. ALERT AND ORIENTED X4. UP AD JONY. HAS A PRODUCTIVE COUGH. O2@ 2 LITERS PER N/C . TELEMETRY IN PLACE. BECOMES SOB WITH EXCERTION. IV TO LT FA SL. DENIES ANY NEEDS AT THIS TIME.
[2019-12-14 21:18] VITALS: BP 130/84
[2019-12-15 00:30] VITALS: BP 128/83
[2019-12-15 04:30] VITALS: BP 113/81
[2019-12-15 05:29] LABS: HEMATOCRIT 40.9 % (36.0-48.0); HEMOGLOBIN 12.7 g/dL (12-16); MCH 28.2 pg (26.0-34.0); MCHC 31.1 g/dL (31.0-37.0); MCV 90.7 fL (80.0-100.0); MEAN PLATELET VOLUME 9.7 fL (7.4-10.4); PLATELET COUNT 390 10x3/uL (130-400); RBC 4.51 10x6/uL (4.00-5.40); RDW 14.3 % (11.5-14.5); WBC 21.3 10x3/uL (4.8-10.8)
[2019-12-15 05:30] LABS: EOSINOPHILS 1 % (0-7); LYMPHOCYTES 9 % (15-50); MONOCYTES 6 % (2-11); NEUTROPHILS 79 % (40-80); PLATELET ESTIMATE NORMAL
[2019-12-15 05:46] LABS: BASOPHILS 0 % (0-2)
[2019-12-15 05:52] LABS: ALBUMIN 3.5 g/dL (3.4-5.0); ALKALINE PHOSPHATASE 76 U/L (30-120); ALT (SGPT) 30 U/L (10-68); BILIRUBIN - TOTAL 0.21 mg/dL (0.2-1.3); CALC OSMOLALITY 275 mosm/kg (275-300); CALCIUM 8.8 mg/dL (8.5-10.1); CARBON DIOXIDE 30.5 mmol/L (21.0-32.0); CHLORIDE - SERUM 103 mmol/L (98-107); CKMB 11.6 U/L (0.0-3.6); CREATINE KINASE 260 UL (21-215); CREATININE - SERUM 0.9 mg/dL (0.6-1.3); GLUCOSE 144 mg/dL (74-106); POTASSIUM - SERUM 4.9 mmol/L (3.5-5.1); PROTEIN - SERUM 7.3 g/dL (6.4-8.2); SODIUM 136 mmol/L (136-145); UREA NITROGEN 14 mg/dL (7-18); eGFR NON AFRICAN AMERICAN 70 mL/min (90-120)
--- NOTE | 2019-12-15 07:00 | NUR ---
RECEIVED REPORT. ASSUMED CARE OF PATIENT. CALL LIGHT WITHIN REACH. PATIENT SITTING UP IN BED. BEDSIDE SHIFT REPORT COMPLETED, WHITE BOARD UPDATED. PATIENT REPORTS PRODUCTIVE COUGH WITH PEDRO SPUTUM. DENIES NEEDS. NO DISTRESS.
[2019-12-15 08:22] VITALS: BP 139/90
--- NOTE | 2019-12-15 08:44 | NUR ---
MEDICATED FOR PAIN AT THIS TIME. NO DISTRESS.
[2019-12-15 12:17] VITALS: BP 143/77
--- NOTE | 2019-12-15 13:05 | NUR ---
22 GAUGE IV REMOVED FROM LEFT FOREARM AREA BEGAN TO SWELL AND PATIENT COMPLAIN OF TENDERNESS. CATHETER TIP INTACT. NO BLEEDING FROM SITE. 2X2 GAUZE APPLIED AND SECURED WITH TAPE. TOLERATED IV REMOVAL WELL. 20 GAUGE IV PLACED TO RIGHT HAND X 1 STICK. GOOD BLOOD RETURN, EASY FLUSH. IV TAPED, DATED AND SECURED. PATIENT TOLERATED IV PLACEMENT WELL. IV FLUIDS NOW INFUSING ORDERED. NO DISTRESS.
[2019-12-15 13:11] LABS: CKMB 7.9 U/L (0.0-3.6); CREATINE KINASE 187 UL (21-215)
--- NOTE | 2019-12-15 14:30 | NUR ---
MEDICATED FOR PAIN AT THIS TIME. NO DISTRESS.
[2019-12-15 15:45] VITALS: BP 138/89
--- NOTE | 2019-12-15 17:00 | NUR ---
SITTING IN BED, CONSUMING PM MEAL. NO DISTRESS. CALL LIGHT WITHIN REACH. ICE PROVIDED UPON REQUEST.
[2019-12-15 18:31] LABS: CKMB 5.9 U/L (0.0-3.6); CREATINE KINASE 151 UL (21-215)
--- NOTE | 2019-12-15 20:12 | NUR ---
RECIEVED UP IN BED WITH EYES OPEN. ALERT AND ORIENTED X4. UP AD JONY TO B/R. STATES NOT FEELING MUCH BETTER. CONT TO HAVEE A PRODUCTIVE COUGH. O2 AT 2.[address] TELEMETRY IN PLACE. IV TO RT HAND WITH NS INFUSING AT 50CC/HR. DSG INTACT. DENIES ANY NEEDS AT THIS TIME.
[2019-12-15 20:30] VITALS: BP 147/89
[2019-12-16 00:30] VITALS: BP 135/72
[2019-12-16 04:30] VITALS: BP 144/73
[2019-12-16 05:25] LABS: BASOPHILS 0 % (0-2); EOSINOPHILS 0 % (0-7); HEMOGLOBIN 13.5 g/dL (12-16); IMMATURE GRANULOCYTES 0.9 % (0-5); LYMPHOCYTES 8.4 % (15-50); MCH 29.2 pg (26.0-34.0); MCHC 31.4 g/dL (31.0-37.0); MONOCYTES 3.9 % (2-11); NEUTROPHILS 86.8 % (40-80); PLATELET COUNT 383 10x3/uL (130-400); RBC 4.62 10x6/uL (4.00-5.40); RDW 14.7 % (11.5-14.5); WBC 16.2 10x3/uL (4.8-10.8)
[2019-12-16 05:40] LABS: MCV 93.1 fL (80.0-100.0)
[2019-12-16 06:03] LABS: ALBUMIN 3.4 g/dL (3.4-5.0); ANION GAP 6.7 mmol/L (8-16); BILIRUBIN - TOTAL 0.23 mg/dL (0.2-1.3); CALCIUM 8.5 mg/dL (8.5-10.1); CARBON DIOXIDE 32.7 mmol/L (21.0-32.0); CREATININE - SERUM 0.9 mg/dL (0.6-1.3); POTASSIUM - SERUM 4.4 mmol/L (3.5-5.1); PROTEIN - SERUM 7.4 g/dL (6.4-8.2)
[2019-12-16 10:41] VITALS: BP 165/90
[2019-12-16 13:04] VITALS: BMI 35.5
[2019-12-16 13:14] VITALS: BP 143/104
--- NOTE | 2019-12-16 13:51 | MORECARE ---
CASE MANAGEMENT DISCHARGE SUMMARY PATIENT: LINDA BIRCH [place] UNIT: [id number] ADM DATE: 12/13/19 AGE: 49 : 68 SEX: F ROOM/BED: D.7053 AUTHOR: BONI,DOC PHYSICIAN: REFERRING PHYSICIAN: HOMER FRANCO MD DATE OF SERVICE: 12/16/19 Discharge Plan Patient Name: LINDA BIRCH Facility: [facility]:[place] : 1970 Planned Disposition: Home Anticipated Discharge Date: Discharge Date: Expected LOS: Initial Reviewer: [email or web address] Initial Review Date: 12/16/2019 Generated: 12/16/19 2:50 pm Comments DCP- Discharge Planning Updated by [email or web address]: Amrita Lake on 12/16/19 12:[address] Patient Name: LINDA BIRCH Admission Status: ER Accout number: [id number] Admission Date: 12-13-2019 : 1970 Admission Diagnosis: Attending: HOMER VERA Current LOS: 3 Anticipated DC Date: Planned Disposition: Home Primary Insurance: [place] PRIVATE OPTIONS KELL[place] Discharge Planning Comments: CM met with patient to complete initial dc planning assessment. CM educated patient on the CM role and verbal consent given by patient to complete assessment. Patient lives at home with her daughter and her daughter's 2 children. At discharge patient plans to return and feels this is a safe discharge. CM discussed availability of home health, rehab services, and medical equipment. Patient denied known discharge needs at this time. States her oxygen and nebulizer come from [facility]. States oxygen is on 1 liter at home. States her daughter will transport her home at discharge. CM will continue to follow and will assist as needed with dc plans/needs. Capper Machine Operator: Amrita Lake DCPIA - Discharge Planning Initial Assessment Updated by [email or web address]: Amrita Lake on 12/16/19 1:49 pm * Is the patient Alert and Oriented? Yes * How many steps to enter\exit or inside your home? 5/0 * PCP Dr. Yepez in [place] * Pharmacy [facility] * Preadmission Environment Home with Family * ADLs Independent * Equipment Nebulizer Other Oxygen * Other Equipment Portable oxygen * List name and contact numbers for known caregivers / representatives who currently or will assist patient after discharge: Kasey Gera - DTR - [phone] * Verbal permission to speak to the caregivers and representatives has been obtained from the patient. Yes * Community resources currently utilized None * Please name any agencies selected above. [facility] is DME * Additional services required to return to the preadmission environment? No * Can the patient safely return to the preadmission environment? Yes * Has this patient been hospitalized within the prior 30 days at any hospital? No Patient Name: LINDA BIRCH Page 53619 at 1351 All edits/amendments must be made on the electronic document DICTATION DATE: 12/16/19 1351 CHEMIC MANGLER: JERONIMO 12/16/19 1351 RPT#: [id number] DC DATE: STATUS: ADM IN [facility] [address] [place] [address] END OF REPORT
[2019-12-16 17:53] VITALS: BP 179/93
--- NOTE | 2019-12-16 18:36 | NUR ---
I have reviewed this patient and I concur with the Shift Assessment completed by the Licensed Practical Nurse today this shift.
[2019-12-16 20:00] VITALS: BP 168/94
[2019-12-17] VITALS: BP 143/87
--- NOTE | 2019-12-17 03:27 | NUR ---
I have reviewed this patient and I concur with the Shift Assessment completed by the Licensed Practical Nurse today this shift.
[2019-12-17 04:00] VITALS: BP 152/79
[2019-12-17 04:05] VITALS: Ht 152.4 cm; Wt 100.0 kg
[2019-12-17 06:34] LABS: BASOPHILS 0.1 % (0-2); EOSINOPHILS 0 % (0-7); HEMATOCRIT 42.6 % (36.0-48.0); HEMOGLOBIN 13.2 g/dL (12-16); IMMATURE GRANULOCYTES 0.7 % (0-5); LYMPHOCYTES 11.5 % (15-50); MCH 28.2 pg (26.0-34.0); MONOCYTES 5.1 % (2-11); NEUTROPHILS 82.6 % (40-80); PLATELET COUNT 383 10x3/uL (130-400); RBC 4.68 10x6/uL (4.00-5.40); RDW 14.3 % (11.5-14.5); WBC 13.9 10x3/uL (4.8-10.8)
[2019-12-17 07:19] LABS: ALBUMIN 3.3 g/dL (3.4-5.0); ALKALINE PHOSPHATASE 70 U/L (30-120); ALT (SGPT) 24 U/L (10-68); CALC OSMOLALITY 277 mosm/kg (275-300); CALCIUM 8.6 mg/dL (8.5-10.1); CARBON DIOXIDE 32.5 mmol/L (21.0-32.0); CHLORIDE - SERUM 99 mmol/L (98-107); CREATININE - SERUM 0.8 mg/dL (0.6-1.3); GLUCOSE 144 mg/dL (74-106); POTASSIUM - SERUM 4.4 mmol/L (3.5-5.1); PROTEIN - SERUM 6.7 g/dL (6.4-8.2); SODIUM 137 mmol/L (136-145); UREA NITROGEN 16 mg/dL (7-18); eGFR NON AFRICAN AMERICAN 80 mL/min (90-120)
[2019-12-17 09:41] VITALS: BP 167/87
[2019-12-17 13:32] VITALS: BP 146/83
--- NOTE | 2019-12-17 13:39 | NUR ---
I have reviewed this patient and I concur with the Shift Assessment completed by the Licensed Practical Nurse today this shift.
[2019-12-17 17:09] VITALS: BP 154/80
--- NOTE | 2019-12-17 18:40 | NUR ---
PT TOOK SHOWER BY SELF.
[2019-12-17 20:00] VITALS: BP 170/83
[2019-12-18] VITALS: BP 146/89
[2019-12-18 04:00] VITALS: BP 131/62
[2019-12-18 06:11] LABS: BASOPHILS 0.1 % (0-2); EOSINOPHILS 0 % (0-7); HEMATOCRIT 43.4 % (36.0-48.0); HEMOGLOBIN 13.7 g/dL (12-16); IMMATURE GRANULOCYTES 0.9 % (0-5); LYMPHOCYTES 14.5 % (15-50); MCH 28.5 pg (26.0-34.0); MCHC 31.6 g/dL (31.0-37.0); MCV 90.4 fL (80.0-100.0); MEAN PLATELET VOLUME 9.8 fL (7.4-10.4); MONOCYTES 8.2 % (2-11); NEUTROPHILS 76.3 % (40-80); PLATELET COUNT 382 10x3/uL (130-400); WBC 14.8 10x3/uL (4.8-10.8)
[2019-12-18 07:01] LABS: ALBUMIN 3.2 g/dL (3.4-5.0); ALKALINE PHOSPHATASE 71 U/L (30-120); ALT (SGPT) 23 U/L (10-68); BILIRUBIN - TOTAL 0.24 mg/dL (0.2-1.3); CALC OSMOLALITY 280 mosm/kg (275-300); CALCIUM 8.9 mg/dL (8.5-10.1); CARBON DIOXIDE 33.1 mmol/L (21.0-32.0); CHLORIDE - SERUM 102 mmol/L (98-107); CREATININE - SERUM 0.7 mg/dL (0.6-1.3); GLUCOSE 136 mg/dL (74-106); POTASSIUM - SERUM 4.6 mmol/L (3.5-5.1); PROTEIN - SERUM 6.5 g/dL (6.4-8.2); SODIUM 139 mmol/L (136-145); UREA NITROGEN 15 mg/dL (7-18); eGFR NON AFRICAN AMERICAN > 90 mL/min (90-120)
[2019-12-18 09:00] VITALS: BP 136/95
--- NOTE | 2019-12-18 13:02 | NUR ---
Nutrition Follow-up: Eating well. Diet: Regular PO intake: 100% x 10 meals Wt: 220# (12/17); 220# (12/12 - stated) Last BM: 12/16 per chart Labs noted: Glu 136, Alb 3.2 Meds noted: Solumedrol, NS @ 50, Protonix, electrolyte protocol -Monitor wt; noted daily wts ordered. -RD following.
[2019-12-18 17:08] VITALS: BP 125/81
--- NOTE | 2019-12-18 19:15 | NUR ---
REPORT RECEIVED, WILL CONTINUE POC. PATIENT IN BATHROOM. NO S/S OF DISTRESS OBSERVED, RR EVEN AND UNLABORED ON 3.5L O2 VIA NC. PATIENT DENIES NEEDS AT THIS TIME. CL IN REACH, BED LOCKED AND LOWERED. WILL CTM.
[2019-12-18 20:00] VITALS: BP 134/73
--- NOTE | 2019-12-19 02:41 | NUR ---
PATIENT C/O OF LOWER BACK PAIN, PRN NORCO ADMINISTERED PER ORDERS.
--- NOTE | 2019-12-19 03:13 | NUR ---
I have reviewed this patient and I concur with the Shift Assessment completed by the Licensed Practical Nurse today this shift.
[2019-12-19 06:13] LABS: BASOPHILS 0.1 % (0-2); EOSINOPHILS 2.6 % (0-7); HEMATOCRIT 42.6 % (36.0-48.0); HEMOGLOBIN 13.1 g/dL (12-16); IMMATURE GRANULOCYTES 0.9 % (0-5); LYMPHOCYTES 41.4 % (15-50); MCH 27.9 pg (26.0-34.0); MCHC 30.8 g/dL (31.0-37.0); MCV 90.6 fL (80.0-100.0); MEAN PLATELET VOLUME 9.7 fL (7.4-10.4); MONOCYTES 7.3 % (2-11); NEUTROPHILS 47.7 % (40-80); PLATELET COUNT 321 10x3/uL (130-400); RDW 14.1 % (11.5-14.5); WBC 12.8 10x3/uL (4.8-10.8)
[2019-12-19 06:24] LABS: ALKALINE PHOSPHATASE 63 U/L (30-120); ALT (SGPT) 21 U/L (10-68); BILIRUBIN - TOTAL 0.28 mg/dL (0.2-1.3); CALC OSMOLALITY 278 mosm/kg (275-300); CALCIUM 8.2 mg/dL (8.5-10.1); CHLORIDE - SERUM 102 mmol/L (98-107); CREATININE - SERUM 0.7 mg/dL (0.6-1.3); GLUCOSE 92 mg/dL (74-106); PROTEIN - SERUM 5.9 g/dL (6.4-8.2); SODIUM 139 mmol/L (136-145); UREA NITROGEN 15 mg/dL (7-18); eGFR NON AFRICAN AMERICAN > 90 mL/min (90-120)
[2019-12-19 06:25] LABS: POTASSIUM - SERUM 3.8 mmol/L (3.5-5.1)
--- NOTE | 2019-12-19 07:30 | NUR ---
PT SITTING UP IN BED. RR EVEN AND SLIGHTLY LABORED ON 3L NC. PT STATES SHE IS READY TO D/C AND HAS A DR. APPOINTMENT AT 1630. WILL SPEAK WITH DR AND SEE IF SHE IS READY FOR D/C. BED IN LOWEST POSITION. CALL LIGHT WITHIN REACH. WILL CONTINUE TO MONITOR.
[2019-12-19 09:37] VITALS: BP 109/61
[2019-12-19] MEDS ORDERED: OMNICEF300 MG PO (10:32)
[2019-12-19] MEDS ORDERED: VIBRAMYCIN 100100 MG PO (10:32)
[2019-12-19] MEDS ORDERED: FLUTICASONE PRO16 GM NASAL (10:34)
[2019-12-19] MEDS ORDERED: SINGULAIR10 MG PO (10:34)
[2019-12-19] MEDS ORDERED: Tessalon Perle PO (10:40)
[2019-12-19] MEDS ORDERED: DALIRESP250 MCG PO (10:40)
[2019-12-19] MEDS ORDERED: MUCINEX DM ER1 EAC1 PO (10:40)
[2019-12-19] MEDS ORDERED: PREDNISONE10 MG PO (10:43)
--- NOTE | 2019-12-19 11:34 | MORECARE ---
CASE MANAGEMENT DISCHARGE SUMMARY PATIENT: LINDA BIRCH SHAUN UNIT: [id number] ADM DATE: 12/13/19 AGE: 49 : 68 SEX: F ROOM/BED: D.6109 AUTHOR: BONI,DOC PHYSICIAN: REFERRING PHYSICIAN: HOMER FRANCO MD DATE OF SERVICE: 12/19/19 Discharge Plan Patient Name: LINDA BIRCH Facility: [facility]:[place] : 1970 Planned Disposition: Home Anticipated Discharge Date: Discharge Date: Expected LOS: Initial Reviewer: [email or web address] Initial Review Date: 12/16/2019 Generated: 12/19/19 12:34 pm Comments DCP- Discharge Planning Updated by [email or web address]: [place] on 12/19/19 10:[address] Patient Name: LINDA BIRCH Encounter No: [id number] : 1970 Primary Insurance: [employer] [facility] Anticipated DC Date: Planned Disposition: Home External Planned Provider: : DCP follow-up note: Patient in agreement with discharge plan. No changes to plan. Case management will follow and assist as needed. Amrita Aleksandra DCP- Discharge Planning Updated by [email or web address]: Amrita Chapmanpamela on 12/16/19 12:[address] Patient Name: LINDA BIRCH Admission Status: ER Accout number: [id number] Admission Date: 12-13-2019 : 1970 Admission Diagnosis: Attending: HOMER VERA Current LOS: 3 Anticipated DC Date: Planned Disposition: Home Primary Insurance: [employer] [facility] Discharge Planning Comments: CM met with patient to complete initial dc planning assessment. CM educated patient on the CM role and verbal consent given by patient to complete assessment. Patient lives at home with her daughter and her daughter's 2 children. At discharge patient plans to return and feels this is a safe discharge. CM discussed availability of home health, rehab services, and medical equipment. Patient denied known discharge needs at this time. States her oxygen and nebulizer come from [facility]. States oxygen is on 1 liter at home. States her daughter will transport her home at discharge. CM will continue to follow and will assist as needed with dc plans/needs. Information Clerk: Amrita Aleksandra DCPIA - Discharge Planning Initial Assessment Updated by [email or web address]: Amrita Aleksandra on 12/16/19 1:49 pm * Is the patient Alert and Oriented? Yes * How many steps to enter\exit or inside your home? 5/0 * PCP Dr. Yepez in [place] * Pharmacy [facility] on [address] * Preadmission Environment Home with Family * ADLs Independent * Equipment Nebulizer Other Oxygen * Other Equipment Portable oxygen * List name and contact numbers for known caregivers / representatives who currently or will assist patient after discharge: Kasey Gera - DTR - [phone] * Verbal permission to speak to the caregivers and representatives has been obtained from the patient. Yes * Community resources currently utilized None * Please name any agencies selected above. [facility] is DME * Additional services required to return to the preadmission environment? No * Can the patient safely return to the preadmission environment? Yes * Has this patient been hospitalized within the prior 30 days at any hospital? No Last DP export: 12/16/19 12:51 pm Patient Name: LINDA BIRCH Page [id number] at 1134 All edits/amendments must be made on the electronic document DICTATION DATE: 12/19/19 113 SUPERVISOR SKI PRODUCTION: JERONIMO 12/19/19 113 RPT#: [id number] DC DATE: STATUS: ADM IN [facility] [address] [place] [address] END OF REPORT
--- NOTE | 2019-12-19 14:24 | NUR ---
D/C INSTRUCTIONS REVIEWED. VERBALIZED UNDERSTANDING. IV D/C WITH CATHETER TIP INTACT. DENIED WHEELCHAIR OUT. PT AMBULATED TO PERSONAL VEHICLE WITH ALL BELONGINGS WITH STEADY GAIT.
--- NOTE | 2019-12-20 09:01 | MORECARE ---
CASE MANAGEMENT DISCHARGE SUMMARY PATIENT: LINDA BIRCH SHAUN UNIT: [id number] ADM DATE: 12/13/19 AGE: 49 : 68 SEX: F ROOM/BED: D.7853 AUTHOR: BONI,DOC PHYSICIAN: REFERRING PHYSICIAN: HOMER FRANCO MD DATE OF SERVICE: 12/20/19 Discharge Plan Patient Name: LINDA BIRCH Facility: [facility]:[place] : 1970 Planned Disposition: Home Anticipated Discharge Date: Discharge Date: 12/19/2019 Expected LOS: Initial Reviewer: [email or web address] Initial Review Date: 12/16/2019 Generated: 12/20/19 10:00 am Comments DCP- Discharge Planning Updated by [email or web address]: Amrita [place] on 12/19/19 10:[address] Patient Name: LINDA BIRCH Encounter No: [id number] : 1970 Primary Insurance: [employer] [facility] Anticipated DC Date: Planned Disposition: Home External Planned Provider: : DCP follow-up note: Patient in agreement with discharge plan. No changes to plan. Case management will follow and assist as needed. Amrita Aleksandra DCP- Discharge Planning Updated by [email or web address]: Amrita Aleksandra on 12/16/19 12:[address] Patient Name: LINDA BIRCH Admission Status: ER Accout number: [id number] Admission Date: 12-13-2019 : 1970 Admission Diagnosis: Attending: HOMER VERA Current LOS: 3 Anticipated DC Date: Planned Disposition: Home Primary Insurance: [employer] [facility] Discharge Planning Comments: CM met with patient to complete initial dc planning assessment. CM educated patient on the CM role and verbal consent given by patient to complete assessment. Patient lives at home with her daughter and her daughter's 2 children. At discharge patient plans to return and feels this is a safe discharge. CM discussed availability of home health, rehab services, and medical equipment. Patient denied known discharge needs at this time. States her oxygen and nebulizer come from [facility]. States oxygen is on 1 liter at home. States her daughter will transport her home at discharge. CM will continue to follow and will assist as needed with dc plans/needs. Remote Ruby On Rails Developer: Amrita Aleksandra DCPIA - Discharge Planning Initial Assessment Updated by [email or web address]: Amrita Aleksandra on 12/16/19 1:49 pm * Is the patient Alert and Oriented? Yes * How many steps to enter\exit or inside your home? 5/0 * PCP Dr. Yepez in [place] * Pharmacy [facility] on [address] * Preadmission Environment Home with Family * ADLs Independent * Equipment Nebulizer Other Oxygen * Other Equipment Portable oxygen * List name and contact numbers for known caregivers / representatives who currently or will assist patient after discharge: Kasey Gera - DTR - [phone] * Verbal permission to speak to the caregivers and representatives has been obtained from the patient. Yes * Community resources currently utilized None * Please name any agencies selected above. [facility] is DME * Additional services required to return to the preadmission environment? No * Can the patient safely return to the preadmission environment? Yes * Has this patient been hospitalized within the prior 30 days at any hospital? No Last DP export: 12/19/19 10:34 am Patient Name: LINDA BIRCH Page [id number] at 0901 All edits/amendments must be made on the electronic document DICTATION DATE: 12/20/19899 DIRECT CHILL CASTING OPERATOR: JERONIMO 12/20/19899 RPT#: [id number] DC DATE:12/19/19 STATUS: DIS IN [facility] [address] [place] [address] END OF REPORT
== END 2019-12-19 14:25 | disposition home or self-care (01) | DRG 189 ==
LOC: D.ER 12:19 → D.M2 15:18
PROVIDERS: Family Medicine; ADMIT Family Medicine; ATTEND Family Medicine
DX: J96.01 Acute respiratory failure with hypoxia (principal); M62.82 Rhabdomyolysis; J20.9 Acute bronchitis, unspecified; K21.9 Gastro-esophageal reflux disease without esophagitis; J43.9 Emphysema, unspecified; E66.9 Obesity, unspecified; R91.1 Solitary pulmonary nodule; Z68.35 Body mass index [BMI] 35.0-35.9, adult; Z87.891 Personal history of nicotine dependence; D35.02 Benign neoplasm of left adrenal gland